=== PATIENT | female | born 1955 | race Caucasian/White ===

== ENCOUNTER → 2021-01-13 09:52 | Outpatient (BNVA) | payer MEDICARE, SELFPAY | PROVIDERS: Visit Provider Orthopaedic Surgery | DX: M17.12 Unilateral primary osteoarthritis, left knee (principal) | CPT/HCPCS: 99202 ==

== ENCOUNTER → 2022-12-21 14:27 | Outpatient (BNVA) | payer MEDICARE, SELFPAY | PROVIDERS: PCP Nurse Practitioner Family; Visit Provider Surgery | DX: Z86.010 Personal history of colon polyps (principal) | CPT/HCPCS: 99202 ==

== ENCOUNTER 2023-02-22 08:45 | Outpatient (REF) | payer MEDICARE, SELFPAY ==
--- NOTE | ~2023-02-22 | CT_ITS ---
EXAMINATION: CT COLONOGRAPHY CLINICAL INFORMATION: Personal history of colonic polyps. Unsuccessful colonoscopy. COMPARISON: Portions of a previous study 06/14/2019. TECHNIQUE: Bowel preparation: There is a moderate amount of retained material including fluid. Stool tagging with Gastrografin and barium: Stool tagging was not used. Colonic distention: CO2 mechanical insufflator used via enema tube with incomplete distention. Acquisition: Low dose imaging targeted to colonic was performed in the supine and prone positions. Procedure: No immediate complication reported. Review: The acquired images were reviewed in axial, coronal and sagittal planes. Additional 3-D fly through images were reviewed at an independent workstation. This CT examination was performed using dose optimization techniques as appropriate, variously including the following: *Automated exposure control *Adjustment of mA and/or kV according to patient size (this includes techniques or standardized protocols for targeted exams where dose is matched to indication/reason for exam; i.e. extremities or head) *Use of iterative reconstruction technique DLP: 690 mGy-cm FINDINGS: COLONIC FINDINGS: There is a moderate amount of retained fluid and fecal residue. This could obscure a significant abnormality and limits the exam. There are colonic diverticula. There is some sigmoid wall thickening. No large mass. Small or moderate-sized abnormalities might be obscured. There is a broad-based slightly hyperdense 1.0 cm abnormality protruding into the lumen of the descending colon (series 5, image 530). This is approximately 59 cm from the anal verge. This area is obscured on the prone series. This could represent inspissated material within a diverticulum but is not entirely specific. There may be a diminutive less than 0.5 cm polyp in the ascending colon (series 5, image 354). Lesions of this size are unlikely to harbor significant disease. No large abnormality in the areas of possible polyp on 06/14/2019. NONCOLONIC FINDINGS: There is cholelithiasis. There is no left adnexal mass. There is fatty change in the liver. CT/CT colonography IMPRESSION: Limited study. No large colonic abnormality. Small or moderate-sized abnormalities could be obscured.
== END 2023-02-22 08:46 | disposition home or self-care (01) ==
LOC: HO.CT 08:45
PROVIDERS: Visit Provider Surgery
DX: K56.609 Unspecified intestinal obstruction, unspecified as to partial versus complete obstruction (principal); Z86.010 Personal history of colon polyps
CPT/HCPCS: 74261

== ENCOUNTER → 2023-03-01 13:26 | Outpatient (BNVA) | payer MEDICARE, SELFPAY | PROVIDERS: PCP Nurse Practitioner Family; Visit Provider Surgery | DX: Z86.010 Personal history of colon polyps (principal) | CPT/HCPCS: 99212 ==

== ENCOUNTER 2023-08-15 15:14 | Outpatient (AMB) | payer MEDICARE, SELFPAY ==
--- NOTE | 2023-08-15 16:07 | AM.OFFWIN_ITS ---
Intake Vital Signs 08/15/23 16:08 Height 5 ft 8 in Weight 223 lb 4 oz BMI 33.9 BP 130/84 Blood Pressure Location Rt brachial Position Sitting Pulse 77 Pulse Source Pulse Oximeter Temp 98.4 F Temp Source Oral Pulse Oximetry (%) 97 Oxygen Delivery Method Room Air Intake Visit Reasons: EST/sinus infection(lobby masked) Intake Note: pt had a cold last Mon and now she has a very painful congestion in her sinus area and nothing is coming out Allergies cephalexin [From Keflex] Adverse Reaction (Intermediate, Verified 08/15/23 16:38) Vomiting Medication List - Last Reconciled 08/15/23 by Garo Adrian MD bupropion HCl (Wellbutrin SR) 100 mg PO BEDTIME fluoxetine 10 mg PO DAILY hydrochlorothiazide 12.5 mg PO BID levothyroxine 13 mcg PO DAILY metformin ER 500 mg PO DAILY sodium,potassium,mag sulfates 17.5-3.13-1.6 gram (Suprep Bowel Prep Kit) DILUTE; drink full amount early evening before AND next morning at least 2 hr before procedure; follow w 960 mL water PO HPI EST/sinus infection(lobby masked) HPI Details Patient presents for a sick visit. Reporting symptoms of sinus congestion, sore throat and difficulty swallowing. Low-grade fever. No family member is sick. No recent travel. Patient reports symptoms of malaise and fatigue. [facility] Medical History High blood pressure History of adenomatous polyp of colon Infertility Obesity (BMI 30-39.9) Thyroid condition Surgical History History of colonoscopy (05/15/20) History of open reduction and internal fixation (ORIF) procedure Family History Brother Gastric cancer Mother Lung cancer Social History Current occupational status: employed Current occupation: right handed/ call center Physical Exam Vital Signs: Last Vital Signs Temp 98.4 F 08/15/23 16:08 Pulse 77 08/15/23 16:08 BP 130/84 08/15/23 16:08 Pulse Ox 97 08/15/23 16:08 Oxygen Delivery Method Room Air 08/15/23 16:08 BMI result Body Mass Index 33.9 Const General: cooperative and healthy appearing Nutritional Appearance: well nourished Orientation/consciousness: patient oriented x3 Limitations: no limitations HEENT Head: Yes normal to inspection Eyes General: appearance normal, both eyes and all related structures Neck Neck: Yes normal visual inspection Chest Chest palpation & inspection: normal palpation of entire chest wall Resp Effort & Inspection: normal respiratory effort Neuro General: patient oriented x3 Assessment & Plan Assessment & Plan (1) Upper respiratory tract infection: Code(s): J06.9 - Acute upper respiratory infection, unspecified Plan: Antibiotics ordered. Increase fluid intake. Tylenol for aches and pains. If symptoms worsen, follow-up here for a recheck. Coding Level of Care Code Est Pt Level 3 (55383) Diagnoses Upper respiratory tract infection J06.9
[2023-08-15 16:08] VITALS: BP 130/84; PULSE 77; TEMP 36.9; O2SAT 97; BMI 33.9
== END 2023-08-15 16:57 | disposition home or self-care (01) ==
LOC: HO.HMGWI 15:14
PROVIDERS: PCP Nurse Practitioner Family
DX: J06.9 Acute upper respiratory infection, unspecified (principal)
CPT/HCPCS: 99213

== ENCOUNTER 2023-10-16 13:08 | Outpatient (AMB) | payer MEDICARE, SELFPAY ==
[2023-10-16 14:20] VITALS: BP 128/78; PULSE 68; TEMP 36.9; O2SAT 98; BMI 32.8
--- NOTE | 2023-10-16 14:20 | MHC.OFFWIV ---
Intake Vital Signs 10/16/23 14:20 Height 5 ft 8 in Weight 216 lb BMI 32.8 BP 128/78 Blood Pressure Location Lt brachial Position Sitting Pulse 68 Pulse Source Pulse Oximeter Temp 98.4 F Temp Source Oral Pulse Oximetry (%) 98 Oxygen Delivery Method Room Air Intake Visit Reasons: EP UTI Intake Note: Patient is here with UTI symptoms for a week and a half. Allergies cephalexin [From Keflex] Adverse Reaction (Intermediate, Verified 10/16/23 14:21) Vomiting Do you need a note to return to daycare/school/sports/work: No HPI HPI Comments History of Present Illness Details Patient presents to the walkin with complaints of UTI symptoms for last week She reports feeling like she has to void but only small amounts come out and burning with urination. Denies abd pain, nausea, vomiting, diarrhea, flank pain. She has been drinking extra fluids but symptoms persists. Denies hematuria or discharge. Denies concern for STI or . [facility] Medical History High blood pressure History of adenomatous polyp of colon Infertility Obesity (BMI 30-39.9) Thyroid condition Surgical History History of colonoscopy (05/15/20) History of open reduction and internal fixation (ORIF) procedure Family History Brother Gastric cancer Mother Lung cancer Social History Current occupational status: employed Current occupation: right handed/ call center Review of Systems Const All systems reviewed & are unremarkable except as noted in HPI and below Physical Exam Vital Signs: Last Vital Signs Temp 98.4 F 10/16/23 14:20 Pulse 68 10/16/23 14:20 BP 128/78 10/16/23 14:20 Pulse Ox 98 10/16/23 14:20 Oxygen Delivery Method Room Air 10/16/23 14:20 BMI result Body Mass Index 32.8 General: awake, alert, oriented. Answers questions appropriately. Fully engaged in examination. Skin: warm, dry, intact HEENT: Normocephalic. Hearing intact. Cardiac: External chest normal in appearance. Respiratory: No cough, audible wheezing or stridor. Abdomen: without gross distension. nontender to palpation MS: No obvious swelling or deformities. Neurological: Oriented to person, place, time and situation. Thought process intact. Psychiatric: Appropriate mood and affect. Good judgment and insight. Results AMB Urinalysis, Automated UA Leukoctes 3 Tyler/uL Last Edit by Maryann Aguillon CMA on 10/16/23 14:47 UA Nitrite Negative Last Edit by Maryann Aguillon, PACO on 10/16/23 14:47 UA Urobilinogen 0.2 mg/dL Last Edit by Maryann Aguillon CMA on 10/16/23 14:47 UA Protein 2 mg/dL Last Edit by Maryann Aguillon CMA on 10/16/23 14:47 UA pH 6.0 Last Edit by Maryann Aguillon, PACO on 10/16/23 14:47 UA Blood 10 Jace/uL Last Edit by Maryann Aguillon CMA on 10/16/23 14:47 UA Specific Apison 1.030 Last Edit by Maryann Aguillon CMA on 10/16/23 14:47 UA Ketone Positive Last Edit by Maryann Aguillon CMA on 10/16/23 14:47 UA Bilirubin 2 mg/dL Last Edit by Maryann Aguillon CMA on 10/16/23 14:47 UA Glucose 0 mg/dL Last Edit by Maryann Aguillon CMA on 10/16/23 14:47 Results Reviewed Results Reviewed: Laboratory Last Values Urine pH (Auto) 6.0 10/16/23 14:43 Specific Apison (Auto) 1.030 10/16/23 14:43 Urine Protein (Auto) 2 mg/dL 10/16/23 14:43 Glucose (UA)(Auto) 0 mg/dL 10/16/23 14:43 Urine Ketones (Auto) Positive 10/16/23 14:43 Urine Blood (Auto) 10 Jace/uL 10/16/23 14:43 Urine Nitrite (Auto) Negative 10/16/23 14:43 Urine Bilirubin (Auto) 2 mg/dL 10/16/23 14:43 Urine Urobilinogen (Auto) 0.2 mg/dL 10/16/23 14:43 Leukocyte Esterase (Auto) 3 Tyler/uL 10/16/23 14:43 Assessment & Plan Assessment & Plan (1) Urinary tract infection: Code(s): N39.0 - Urinary tract infection, site not specified Plan UTI: Macrobid 100mg po BID for 7 days Pyridium 100mg po TID as needed drink plenty of fluids, avoid intercourse until at least 1 week after completion of abx, cotton underwear, showers only no baths until after symptoms resolve. All questions and concerns answered, patient agrees with plan [facility]. Orders: Orders AMB Urinalysis Automated Today R30.0 - Dysuria Medications: New nitrofurantoin macrocrystal must administer with a meal/food 100 mg PO BID 14 caps 0RF phenazopyridine (Pyridium) 100 mg PO TID PRN 20 tabs 0RF pain Coding Level of Care Code Est Pt Level 4 (89764) Diagnoses Urinary tract infection N39.0
== END 2023-10-16 15:34 | disposition home or self-care (01) ==
PROVIDERS: PCP Nurse Practitioner Family; Visit Provider Registered Nurse Emergency
DX: N39.0 Urinary tract infection, site not specified (principal); R30.0 Dysuria
CPT/HCPCS: 81003; 99213

== ENCOUNTER 2024-06-24 09:45 | Emergency (ER) | payer MEDICARE, SELFPAY ==
--- NOTE | ~2024-06-24 | CT_ITS ---
EXAMINATION: CT CHEST WITHOUT CONTRAST CLINICAL INFORMATION: Left rib pain with question of a rib fracture COMPARISON: Rib radiographs earlier today and CT chest 08/10/2016 TECHNIQUE: Multidetector volumetric CT imaging of the chest was done. Axial MIP volume rendering provided. Sagittal and coronal reformatted images were obtained. This CT examination was performed using dose optimization techniques as appropriate, variously including the following: *Automated exposure control *Adjustment of mA and/or kV according to patient size (this includes techniques or standardized protocols for targeted exams where dose is matched to indication/reason for exam; i.e. extremities or head) *Use of iterative reconstruction technique DLP: 342 mGy-cm FINDINGS: LUNGS: Is a cluster of 3 pulmonary nodules in the right upper lobe sitting atop the minor fissure with the largest measuring 5 mm (5:256). These are new when compared to the 08/10/2016 study. The lungs are clear with no evidence of inflammation or additional nodules. MEDIASTINUM: The mediastinum is normal. CORONARY ARTERY CALCIFICATION: None visualized on this study. PLEURA: There is no pleural effusion. No pleural mass or thickening. AXILLA: No lymphadenopathy. UPPER ABDOMEN: The gallbladder is only partially visualized and contains a calcified gallstone with no findings of pericholecystic inflammation seen. OSSEOUS STRUCTURES: No definite acute displaced rib fractures are seen. The spine appears unremarkable. The sternum is intact. Shoulders are unremarkable. CT/CT chest wo IV con IMPRESSION: 1. No evidence of a rib fracture. 2. Incidental note made of a cluster of 3 pulmonary nodules in the right upper lobe with the largest measuring 5 mm. I suspect these are inflammatory. As a precaution, a 6 month follow-up CT scan of the chest could be performed. This would be the recommendation if the patient was in a lung screening cohort. Fleischner guidelines were followed. Electronically signed by: Carl Cortez MD 06/24/2024 03:58 PM EDT
--- NOTE | ~2024-06-24 | XR_ITS ---
EXAMINATION: XR RIBS, LEFT CLINICAL INFORMATION: Fall. COMPARISON: Most recent CT chest dated 08/10/2016. TECHNIQUE: PA view of the chest as well as 3 views of the left ribs. FINDINGS: Lungs are clear. No consolidation, pneumothorax, or pleural effusion. The cardiomediastinal silhouette and pulmonary vasculature are normal. Possible nondisplaced fractures through the lateral aspect of what appear to be the sixth and ninth ribs. Correlate for focal tenderness. No concerning lytic or blastic osseous lesion. No abnormal soft tissue calcification. XR/XR ribs LT min 3V w CXR1V IMPRESSION: Possible nondisplaced fractures through the lateral aspect of what appear to be the sixth and ninth ribs. Correlate for focal tenderness. Electronically signed by: Rj Irizarry MD 06/24/2024 12:11 PM EDT
[2024-06-24 09:50] VITALS: BP 155/62; PULSE 61; RESP 20; TEMP 37; O2SAT 100; BMI 31.2
[2024-06-24 11:35] VITALS: BP 172/74; PULSE 56; RESP 18; TEMP 36.6; O2SAT 95
--- NOTE | 2024-06-24 11:39 | ED.FALL ---
HPI - Fall General Chief Complaint: Fall Stated Complaint: ? Broken Rib(s) L Side Fall 06/23/24 Time Seen by Provider: 06/24/24 10:52 Source: patient and RN notes reviewed Mode of arrival: ambulatory Limitations: no limitations History of Present Illness ED Provider: Heidy Simon PA-C HPI Narrative: This is a 69-year-old female, with a history depression anxiety retention, thyroid disease, who presents emergency department with complaints of left sided rib pain since yesterday. Patient states that she accidentally rolled off her bed last night while she was awake at 7:30 p.m. and landed onto her left side with her left arm tucked into herself. She states she immediately had pain in her left side. She states that the pain worsens with inspiration, describing the pain as sharp in nature. She denies any shortness for breath. She denies hitting her head or loss consciousness. She is not on blood thinners. She took Tylenol and Motrin prior to her arrival. No other complaints or concerns at this time. MD complaint: fall Onset (ago): day(s) Fall from: out of bed Fall witnessed: yes, by family Place fall occurred: home Loss of consciousness: none Prolonged down time: no Symptoms prior to fall: none Location of injury: chest Related Data Home Medications ?Medication ?Instructions ?Recorded ?Confirmed fluoxetine 10 mg capsule 10 mg PO DAILY 01/13/21 08/15/23 hydrochlorothiazide 12.5 mg capsule 12.5 mg PO BID 01/13/21 08/15/23 levothyroxine 13 mcg capsule 13 mcg PO DAILY 01/13/21 08/15/23 bupropion HCl 100 mg tablet,12 hr 100 mg PO BEDTIME 08/15/23 08/15/23 sustained-release (Wellbutrin SR) metformin 500 mg tablet,extended 500 mg PO DAILY 08/15/23 08/15/23 release 24 hr Previous Rx's ?Medication ?Instructions ?Recorded sodium,potassium,mag sulfates 17.5 See Rx Instructions PO .COMPLEX 12/21/22 gram-3.13 gram-1.6 gram oral soln #354 mL (Suprep Bowel Prep Kit) azithromycin 250 mg tablet See Rx Instructions PO .COMPLEX #6 08/15/23 tabs nitrofurantoin macrocrystal 100 mg 100 mg PO BID #14 caps 10/16/23 capsule phenazopyridine 100 mg tablet 100 mg PO TID PRN pain #20 tabs 10/16/23 (Pyridium) lidocaine 5 % topical patch 1 patch topical DAILY #30 ea 06/24/24 Allergies Allergy/AdvReac Type Severity Reaction Status Date / Time cephalexin [From Keflex] AdvReac Intermediate Vomiting Verified 06/24/24 09:53 Review of Systems Review of Systems: Yes all other systems are reviewed and are negative Constitutional: Constitutional: Reports as per [facility] Past Medical History Attestation statement: The following information was validated with the patient. Medical History History of adenomatous polyp of colon Obesity (BMI 30-39.9) Infertility High blood pressure Thyroid condition Surgical History History of open reduction and internal fixation (ORIF) procedure History of colonoscopy (05/15/20) Family History Family History Brother Gastric cancer Mother Lung cancer Social History Social History Advance Directives: No Advance Directives Information Provided: No Do you have a plan to hurt others: No Plan Current occupational status: employed Current occupation: right handed/ call center Physical Exam Vital Signs: Vital Signs: Last Vital Signs Temp 97.9 F 06/24/24 16:40 Pulse 56 06/24/24 16:40 Resp 18 06/24/24 16:40 BP 148/76 H 06/24/24 16:40 Pulse Ox 93 06/24/24 16:40 O2 Del Method Room Air 06/24/24 16:40 BMI result Body Mass Index 31.2 Const: General: cooperative, comfortable and no acute distress Orientation/consciousness: patient oriented x3 Limitations: no limitations HEENT: Head: Yes normal to inspection, Yes normocephalic and Yes atraumatic Ears: hearing grossly normal bilaterally General nose exam: Normal external nose present Face and sinus: Yes normal facial exam Mouth: Normal oral and palatal mucosa present, oropharynx normal and moist mucous membranes Throat: Yes posterior oropharynx normal Eyes: General: appearance normal, both eyes and all related structures Eyelids: Yes eyelids normal Conjunctivae: conjunctivae normal Sclerae: sclerae normal Pupils: Equal, round and reactive pupils present EOM: EOMs intact bilaterally Neck: Neck: Yes normal visual inspection, Yes full ROM and Yes no lymphadenopathy Lymphatic: no lymphadenopathy noted Chest: Other: Tenderness palpation along the anterior chest wall, as well as the anterior left lateral ribs, no step-off or crepitus. No overlying skin changes. No ecchymosis seen. No flail chest noted Chest palpation & inspection: normal inspection of the chest Resp: Effort & Inspection: normal respiratory effort and able to speak in complete sentences Auscultation: clear to auscultation bilaterally, no crackles, no rales, no rhonchi and no wheezes Cardio: Rate: regular rate Rhythm: regular rhythm Heart sounds: S1 normal heart sound present and S2 normal heart sound present GI: Inspection: Yes normal to inspection Skin: General skin exam: no rashes or lesions noted Trauma: no lacerations or abrasions Wounds: no wounds Neuro: General: patient oriented x3 and moves all extremities Cranial nerves: Yes Equal, round and reactive pupils present Extrem: General: Yes normal to inspection Right upper extremity: normal to inspection Left upper extremity: normal to inspection Right lower extremity: normal to inspection Left lower extremity: normal to inspection Course Reevaluation(s) Reevaluation #1: Rib x-ray was obtained, revealing possible nondisplaced fractures through the lateral aspect of the 6 and 9[address] ribs. Chest CT was obtained, revealing no evidence of rib fracture, there was a incidental note of pulmonary nodules. I discussed with patient, she states that she has a history of these, and had repeat images in 2021 at [facility]. I advised patient to follow-up with her primary care physician regarding this visit as she may need repeat scan of her chest. She understands and agrees with plan. Patient given incentive spirometer as well as return precautions. She is well-appearing, lungs are clear to auscultation bilaterally, she is comfortable for discharge. Patient stable for discharge. Medications Administered Discontinued Medications Generic Name Dose Route Start Last Admin Trade Name Freq PRN Reason Stop Dose Admin Acetaminophen 975 mg 06/24/24 15:37 06/24/24 15:56 Acetaminophen 325 Mg Tablet PO 06/24/24 15:38 975 mg ONCE ONE Administration Lidocaine 1 patch 06/24/24 15:37 06/24/24 15:56 Lidocaine 4 % Patch Adh..Patch TRANSDERMA 06/24/24 15:38 1 patch ONCE ONE Administration Protocol Medical Decision Making Medical Decision Making MDM Narrative: This is a 69-year-old female, with a history of thyroid disease anxiety, depression and hypertension, who presents emergency department right-sided rib pain since yesterday after rolling off her bed last night. On arrival, patient mildly hypertensive at , all other vital signs within normal limits. Lungs are clear to auscultation bilaterally. She has point tenderness palpation along her left lateral ribs. She is not on blood thinners. No LOC or head strike. Differential diagnoses include fracture, pneumothorax, contusion, sprain. X-ray was obtained to rule out any bony abnormalities. Differential Diagnosis Differential Diagnoses: The differential diagnosis associated with the presentation includes See above Admission/Observation Consideration of admission/observation: Escalation of care including admission/observation considered Radiology Impression Discussion of test interpretation with radiology: I have reviewed the radiologist's reading. Radiologist Impression: [place] [id number] CT Scan Report Signed Patient: June Hines MR#: [id number] : 1955 Acct:[id number] Age/Sex: 69 / F ADM Date: 06/24/24 Loc: HO.ED Attending Dr: Ordering Physician: Heidy Simon Date of Service: 06/24/24 Procedure(s): CT chest wo IV con Accession Number(s): [id number] cc: Justo Byers MD; Heidy Simon~ EXAMINATION: CT CHEST WITHOUT CONTRAST CLINICAL INFORMATION: Left rib pain with question of a rib fracture COMPARISON: Rib radiographs earlier today and CT chest 08/10/2016 TECHNIQUE: Multidetector volumetric CT imaging of the chest was done. Axial MIP volume rendering provided. Sagittal and coronal reformatted images were obtained. This CT examination was performed using dose optimization techniques as appropriate, variously including the following: *Automated exposure control *Adjustment of mA and/or kV according to patient size (this includes techniques or standardized protocols for targeted exams where dose is matched to indication/reason for exam; i.e. extremities or head) *Use of iterative reconstruction technique DLP: 342 mGy-cm FINDINGS: LUNGS: Is a cluster of 3 pulmonary nodules in the right upper lobe sitting atop the minor fissure with the largest measuring 5 mm (5:256). These are new when compared to the 08/10/2016 study. The lungs are clear with no evidence of inflammation or additional nodules. MEDIASTINUM: The mediastinum is normal. CORONARY ARTERY CALCIFICATION: None visualized on this study. PLEURA: There is no pleural effusion. No pleural mass or thickening. AXILLA: No lymphadenopathy. UPPER ABDOMEN: The gallbladder is only partially visualized and contains a calcified gallstone with no findings of pericholecystic inflammation seen. OSSEOUS STRUCTURES: No definite acute displaced rib fractures are seen. The spine appears unremarkable. The sternum is intact. Shoulders are unremarkable. CT/CT chest wo IV con IMPRESSION: 1. No evidence of a rib fracture. 2. Incidental note made of a cluster of 3 pulmonary nodules in the right upper lobe with the largest measuring 5 mm. I suspect these are inflammatory. As a precaution, a 6 month follow-up CT scan of the chest could be performed. This would be the recommendation if the patient was in a lung screening cohort. Fleischner guidelines were followed. Electronically signed by: Carl Cortez MD 06/24/2024 03:58 PM EDT RP Dictated By: Carl Cortez MD XR/XR ribs LT min 3V w CXR1V IMPRESSION: Possible nondisplaced fractures through the lateral aspect of what appear to be the sixth and ninth ribs. Correlate for focal tenderness. Electronically signed by: Rj Irizarry MD 06/24/2024 12:11 PM EDT Dictated By: Rj Irizarry MD Discharge Plan Discharge Clinical Impression: Contusion of rib on left side Patient Disposition: Home, Self-Care Instructions: Rib Contusion (ED) Additional Instructions: You were seen in the emergency department due to left sided rib pain. Your CT scan did not show any fractures. Please use incentive spirometer to prevent pneumonia. Use this multiple times throughout the day for the next 1-2 weeks. Take ibuprofen or Tylenol as needed for pain. You may use lidocaine patches as directed, do not directly apply heat or ice the patches as this can cause a burn. If any new or worsening symptoms occur including but not limited to worsening pain, shortness of breath, palpitations, dizziness, blurred vision, please return for re-evaluation. Your CT scan shows some pulmonary nodules, you need to follow-up with your primary care physician regarding this visit. You likely need a repeat CT scan in 6 months. Prescriptions: New lidocaine 5 % adhesive patch,medicated 1 patch topical DAILY Qty: 30 0RF Rx Instructions: leave on most painful area for up to 12 hrs No Action bupropion HCl [Wellbutrin SR] 100 mg tablet sustained-release 12 hr 100 mg PO BEDTIME metformin 500 mg tablet extended release 24 hr 500 mg PO DAILY azithromycin 250 mg tablet See Rx Instructions PO .COMPLEX Qty: 6 0RF Rx Instructions: take 500 mg today (day 1), then 250 mg for 4 days (days 2-5) PO phenazopyridine [Pyridium] 100 mg tablet 100 mg PO TID PRN (Reason: pain) Qty: 20 0RF nitrofurantoin macrocrystal 100 mg capsule 100 mg PO BID Qty: 14 0RF Rx Instructions: must administer with a meal/food levothyroxine 13 mcg capsule 13 mcg PO DAILY hydrochlorothiazide 12.5 mg capsule 12.5 mg PO BID fluoxetine 10 mg capsule 10 mg PO DAILY sodium,potassium,mag sulfates [Suprep Bowel Prep Kit] 17.5-3.13-1.6 gram recon soln See Rx Instructions PO .COMPLEX Qty: 354 0RF Rx Instructions: DILUTE; drink full amount early evening before AND next morning at least 2 hr before procedure; follow w 960 mL water PO Interventions: ED Discharge Assessment Last Done: 06/24/24 16:40 Discharge Date/Time: 06/24/24 16:41 Print Language: Bulgarian
[2024-06-24 14:00] VITALS: BP 192/81; PULSE 53; RESP 18; TEMP 36.6; O2SAT 92
[2024-06-24] MEDS: Acetaminophen 325 MG TABLET 975 MG PO (15:56)
[2024-06-24] MEDS: Lidocaine 4 % Patch ADH..PATCH 1 PATCH TRANSDERMA (15:56)
[2024-06-24 16:00] VITALS: BP 148/76; PULSE 56; RESP 18; TEMP 36.6; O2SAT 93
[2024-06-24 16:40] VITALS: BP 148/76; PULSE 56; RESP 18; TEMP 36.6; O2SAT 93
== END 2024-06-24 16:41 | disposition home or self-care (01) ==
PROVIDERS: Emergency Provider Emergency Medicine; PCP Internal Medicine
DX: S20.212A Contusion of left front wall of thorax, initial encounter (principal); R07.81 Pleurodynia; R07.89 Other chest pain; I10 Essential (primary) hypertension; W06.XXXA Fall from bed, initial encounter; Y93.89 Activity, other specified; Y92.89 Other specified places as the place of occurrence of the external cause; Y99.8 Other external cause status; Z79.899 Other long term (current) drug therapy
CPT/HCPCS: 71101; 71250; 99284